=== PATIENT | male | born 1990 | race Caucasian/White ===

== ENCOUNTER → 2018-05-18 | Outpatient (CLI) | payer BC ==
--- NOTE | 2018-05-18 16:01 | RADIOLOGY IMAGING REPORT ---
FAC[place] [facility] [place]IENT NAME: Angel Joe : 1990 MR: [id number] V: [id number] EXAM DATE: ORDERING PHYSICIAN: LYDIA AMEZCUA TECHNOLOGIST: Location: [facility] - [place] Patient: Angel Joe : 1990 Visit/Account:[id number] Date of Sevice: 05/18/2018 Examination: ULTRASOUND OF THE SCROTUM AND TESTES Comparison: None available. History: Left testicle swelling and pain. Findings: Standard ultrasound of the testicles and scrotum with color flow and spectral analysis. Right testicle: 4.0 x 1.6 x 2.7 cm. 3 mm region of dystrophic calcification in the right mid testicle . There are a few additional microlithiasis scattered throughout the parenchyma. Normal waveforms on Doppler interrogation. Right epididymis: Within normal limits. Left testicle: 4.9 x 2.7 x 3.1 cm. The testicle contains 2 dominant heterogeneous solid and cystic ma sses which on Doppler interrogation demonstrate regions of increased vascularity. A more medial mass measures 3.4 x 1.9 x 1.8 cm and a more lateral mass measures 2.3 x 2.1 x 1.9 cm. There are normal art erial and venous waveforms within the normal testicular parenchyma. Left epididymis: Within normal limits. Hydrocele: Trace simple appearing extratesticular fluid on the right. Varicocele: None Scrotum: Negative. IMPRESSION: 1. The left testicle contains two complex solid and cystic vascular masses; the appearance is most co ncerning for malignancy with abscess considered less likely. Urology consultation is required. 2. 3 mm focus of dystrophic calcification in the right testicle with scattered microlithiasis. Althou gh this has a benign appearance, given the findings in the contralateral testicle, follow-up is requi red. 3. No evidence of torsion. Results were discussed with LYDIA AMEZCUA at 05/18/2018 3:56 PM. Report Dictated By: Gigi Lewis MD at 05/18/2018 3:47 PM Report E-Signed By: Gigi Lewis MD at 05/18/2018 3:56 PM WSN:[id number]
== END ==
LOC: US 14:46
PROVIDERS: ATTEND Family Medicine
DX: N50.89 Other specified disorders of the male genital organs (principal)
CPT/HCPCS: 76870

== ENCOUNTER → 2018-05-19 | Outpatient (CLI) | payer BC ==
[~2018-05-19] MED LIST: DOCU-416 PO; HYDR-4309 PO; IBUP600T22 PO; IOPAMIDOL 76% 100 ML INFUS BTL 100 ML ONE
--- NOTE | 2018-05-19 15:27 | RADIOLOGY IMAGING REPORT ---
FACILITY: [facility] PATIENT NAME: Angel Joe : 1990 MR: [id number] V: [id number] EXAM DATE: ORDERING PHYSICIAN: BENJAMIN MIDDLETON TECHNOLOGIST: Location: [facility] - [place] Patient: Angel Joe : 1990 Visit/Account:[id number] Date of Sevice: 05/19/2018 CT chest with IV contrast CT abdomen with IV contrast CT pelvis with IV contrast History: Left testicular masses suspicious for malignancy. COMPARISON STUDIES: Scrotal ultrasound 05/18/2018. TECHNIQUE: Axial CT images were obtained through the chest, abdomen and pelvis following the admini stration of nonionic iodinated IV contrast. Reformatted coronal and sagittal images were also obtaine d. Contrast used: Isovue 370, 85 ml One of the following dose optimization techniques was utilized in the performance of this exam: Autom ated exposure control; adjustment of the mA and/or kV according to the patient's size; or use of an i terative reconstruction technique. Specific details can be referenced in the facility's radiology C T exam operational policy. FINDINGS: CT Chest- Lower neck: Negative Lungs and pleura: Negative Mediastinum and sherri: Small volume anterior mediastinum triangular soft tissue likely represents res idual thymus. Heart, aorta, and great vessels: Negative Bones: Negative Chest wall: Negative Chest lymph node assessment: There are no enlarged lymph nodes within the chest. CT Abdomen and Pelvis- Liver: Normal. Spleen: size is normal. Gallbladder and bile ducts: Gallbladder is present. Bile ducts are normal caliber. Pancreas: negative Adrenal glands: negative Kidneys: negative Pelvic structures: Left testicle is larger, more heterogeneous and cystic compared to the right te sticle. Bowel and mesenteries: negative Ascites: None Vessels: negative Musculoskeletal: Negative Body wall: negative Abd/Pelvis lymph node assessment: No enlarged abdominal or pelvic lymph nodes. IMPRESSION: 1. Negative study for metastatic disease in the chest, abdomen, or pelvis. 2. Left testicular mass is highly suspicious for malignancy.. Report Dictated By: Chitra Buck MD at 05/19/2018 3:13 PM Report E-Signed By: Chitra Buck MD at 05/19/2018 3:22 PM WSN:[email or web address]
== END ==
LOC: CT 12:41
PROVIDERS: ATTEND Urology
DX: N50.89 Other specified disorders of the male genital organs (principal)
CPT/HCPCS: 36415; 71260; 74177; 81001; 82105; 83615; 84702; 87088; Q9967

== ENCOUNTER 2018-05-22 00:15 | Day surgery (SDC) | payer BC ==
--- NOTE | 2018-05-19 18:54 | HISTORY AND PHYSICAL ---
DATE OF ADMISSION: May 22, 2018 CHIEF COMPLAINT Left testicular mass. HISTORY OF PRESENT ILLNESS Patient is a 27-year-old white male who is referred to the Urology Clinic by Dr. Huerta for left testicular mass. The patient states he noted a mass approximately two weeks ago. It has been slowly progressing in size and has become mildly tender after standing. He denies any history of trauma, dysuria, gross hematuria, flank pain, or abdominal pain. He has no shortness of breath or change in bowel habits. He was seen in the Urology Clinic. His urinalysis was normal. He had had a CBC and electrolytes performed at Dr. Huerta's which were normal as well. A testicular ultrasound performed revealed a 3 mm area of dystrophic calcification on the peripheral left mid testis with a few small microlithiases on that side. His left side was almost completely replaced with a heterogeneous complex cystic and solid hypervascular mass in two lester, one measuring 3.4 cm and one measuring 2.3 cm. His testis volume was approximately 20 mL on the left and 10 mL on the right on his ultrasound exam. Physical exam in the office revealed Nicola 5 male. He had no gynecomastia and a solid, firm to hard mass on the left testicle which was not fixed. He has had a preoperative CT scan of the chest, abdomen, and pelvis which was normal for metastatic disease. Laboratory data with beta hCG came back as normal at less than 2. He had an LDH which was normal at 363. His alpha-fetoprotein is also high normal at 8. The above findings were discussed with the patient, and he was informed as to the high likelihood this would be a germ cell tumor, either non-seminomatous or seminomatous mixed cell. He is now being brought to the operating room for planned left radical orchiectomy. Preoperative discussion included need for followup on the right given this small area of dystrophic calcification. He was given approximately a 0.5% to 2% risk of having bilateral disease. Risk of hypogonadism was also explained give the relatively decreased size of the right vs. left testis. Semen analysis and sperm banking were also discussed, as well as testicular prosthesis, which he declined at the moment, but would consider at a later date. PAST MEDICAL HISTORY Asthma. PAST SURGICAL HISTORY * [place] teeth removal. * Sty removal. MEDICATIONS Albuterol. ALLERGIES No known drug allergies. SOCIAL HISTORY Patient lives in [place], [place]. He denies tobacco use, but does use alcohol. FAMILY HISTORY Significant for breast cancer in his mother. REVIEW OF SYSTEMS Patient denies chest pain, productive cough, fever, chills, nausea, vomiting, bleeding disorder, liver disease, history of undescended testis, or chronic headaches. PHYSICAL EXAMINATION GENERAL: Patient is a well-developed, well-nourished, white male in no acute distress. HEENT: Normocephalic, atraumatic. CHEST: Clear to auscultation bilaterally. CARDIOVASCULAR: Regular rate and rhythm. ABDOMINAL: Soft, nontender. No masses are palpated. BREASTS: He has no breast tenderness or gynecomastia on exam. GENITOURINARY: Nicola 5 male with circumcised penis. His left testis is normal at approximately 10 to 15 mL in volume. The right is approximately 20 to 25 mL in volume which is firm and very mildly tender to palpation. It is not fixed to the scrotal skin. The cord above the left testis appears normal. He has no inguinal hernias or adenopathy. EXTREMITIES: Without clubbing, cyanosis, or edema. NEUROLOGIC: Nonfocal. IMPRESSION A 27-year-old white male with heterogeneous hypervascular cystic and solid mass in the left testis consistent with testicular cancer. His metastatic evaluation and tumor markers have been negative with his alpha-fetoprotein pending. On his right side, he has a small, 3 mm area of dystrophic calcification. PLAN We will perform a left radical orchiectomy. We will also plan to perform a followup exam and ultrasound of the right side in two to three months' time. ROCK
[~2018-05-22] VITALS: Ht 180.3 cm; Wt 62.6 kg
[2018-05-22] MEDS ORDERED: MIDAZOLAM 2 MG/2 ML VIAL IVP PRN (10:00)
[2018-05-22] MEDS ORDERED: ceFAZolin(*) 1 GM VIAL 1 GM, GENTAMICIN(*) 80 MG/2 ML VIAL 60 MG in NS 0.9% IRRIGATION ... IR ONE ×2 (10:00→13:00)
[2018-05-22] MEDS ORDERED: FAMOTIDINE 20 MG TAB PO ONE (10:00)
[2018-05-22] MEDS ORDERED: ceFAZolin(*) 1 GM VIAL 1 GM in NS(*) 0.9% 100 ML ADDVANT BAG 100 ML IVPB ONE (10:00)
[2018-05-22] MEDS ORDERED: NORMOSOL R SOLN(*) 1000 ML BAG 1,000 ML IV PRN (10:00)
[2018-05-22] MEDS ORDERED: LIDOCAINE/SOD BICARB 8.4% SYR ID ONE (10:00)
[2018-05-22 10:20] VITALS: BP 129/83
[2018-05-22] MEDS ORDERED: ROPIVACAINE 0.2% 20 ML VIAL ONE ×2 (10:59)
[2018-05-22] MEDS ORDERED: fentaNYL CITR 100 MCG/2 ML AMP ONE ×3 (11:50→14:51)
[2018-05-22] MEDS ORDERED: DEXAMETHASONE SOD 4 MG/ML VIAL ONE (11:50)
[2018-05-22] MEDS ORDERED: PROPOFOL EMUL(*) 10MG/ML 20 ML 20 ML ONE (11:50)
[2018-05-22] MEDS ORDERED: LIDOCAINE MPF 1% 5 ML VIAL ONE (11:50)
[2018-05-22] MEDS ORDERED: ONDANSETRON 4 MG/2 ML VIAL ONE (11:50)
[2018-05-22] MEDS ORDERED: KETAMINE HCL 200 MG/20 ML MDV ONE (11:52)
[2018-05-22] MEDS ORDERED: KETOROLAC 30 MG/ML VIAL ONE (14:12)
[2018-05-22] MEDS ORDERED: HYDR-4309 PO (14:42)
[2018-05-22] MEDS ORDERED: DOCU-416 PO (14:43)
[2018-05-22] MEDS ORDERED: IBUP600T22 PO (14:44)
[2018-05-22] MEDS ORDERED: APAP/HYDROCODONE 325/5 TAB ONE (15:29)
[2018-05-22 15:30] VITALS: BP 122/82
[2018-05-22 15:45] VITALS: BP 126/79
[2018-05-22 16:00] VITALS: BP 143/82
--- NOTE | 2018-05-23 10:12 | OPERATIVE REPORT 1 ---
EVENT DATE: May 22, 2018 SURGEON: Maximiliano Estevez MD ANESTHESIOLOGIST: Tang Luis MD ANESTHESIA: General. PREOPERATIVE DIAGNOSIS Left testicular tumor. POSTOPERATIVE DIAGNOSIS Left testicular tumor. PROCEDURE PERFORMED Left radical orchiectomy. ESTIMATED BLOOD LOSS 5 cc. IV FLUIDS Crystalloids. DRAINS None. COMPLICATIONS None. PATHOLOGY Left testis and cord sent for permanent analysis. COMPLICATIONS None. CONDITION The patient was taken to the recovery room awake and in stable condition. STATEMENT OF MEDICAL NECESSITY The patient is a 28-year-old white male with an approximately two week history of left testicular swelling and mild discomfort. Sonogram revealed a testicular mass which was heterogeneous in appearance and hypervascular. The patient had a CT abdomen, chest and pelvis, which was negative for metastatic disease. His tumor markers with alpha-fetoprotein and beta hCG were normal with a beta hCG of less than 2 and alpha-fetoprotein of 8. His LDH was also normal at 363. The patient is now being brought to the operating room for planned left radical orchiectomy. The above findings were discussed with the patient and his parents. The specific risks and benefits of the procedure were explained with possible need for further treatment pending pathology. He has also bee informed as to fertility and hypogonadal risks associated with orchiectomy. DESCRIPTION OF PROCEDURE The patient was brought to the operating room. After general anesthetic was obtained, he was placed supine on the operating room table. A 4 cm curvilinear incision was made two fingerbreadths above the pubic tubercle and taken down through the lines of the Janay in a superior lateral direction. It was taken down to the subcutaneous tissue with electrocautery until the aponeurosis of the external oblique was encountered. It was incised parallel with its fibers to expose the inguinal contents on the left side. The ilioinguinal nerve was identified and retracted superomedially. The cord was isolated at the pubic tubercle and the testis was delivered up through the incision and the gubernacular attachments were removed. Cremasteric fibers were dissected down to the internal ring. No direct or indirect inguinal hernia could be identified. At this point, the vas was isolated at the internal ring. It was doubly cross- clamped and incised. The ends were free tied with 3-0 silk. Following this, the cord just inside the internal ring was doubly cross-clamped with a right angle clamp and a distal clamp placed beyond this. It was incised with the Metzenbaum scissors. The specimen was removed and placed on the back table. A 0 silk suture tie was placed on the more distal right angle followed by a free tie on the more proximal. This was followed by an 0 PDS stitch or free tie which was left with ends approximately 1.5 cm for possible further identification during node dissection. After release, the cord stump retracted nicely into the internal ring. The wound was irrigated with double antibiotic solution. The ilioinguinal nerve was placed back in its normal anatomical position and the aponeurosis was closed with 2-0 Vicryl in a running manner. Following this, 0.25% ropivacaine was given along the floor and skin edge. The subcutaneous tissues were reapproximated with interrupted 3-0 chromic and the skin was closed with running subcuticular 4-0 Vicryl. Skin adhesive was placed along the skin edge. A sterile fluff dressing was applied at the conclusion of the case. The patient was awakened in the operating room and taken to recovery area in stable condition. PLAN Patient will be discharged home today on [place], Colace and Motrin. We will plan to see him in the Urology Clinic in approximately one week's time to review his pathology and discuss further treatment. ROCK
== END 2018-05-22 15:30 | disposition home or self-care (01) ==
LOC: OR 00:15
PROVIDERS: ATTEND Urology
DX: D49.59 Neoplasm of unspecified behavior of other genitourinary organ (principal); N50.9 Disorder of male genital organs, unspecified
CPT/HCPCS: 54530; 88307; J0690; J1100; J1885; J2001; J2250; J2405; J2704; J2795; J3010; J3490; J7050

== ENCOUNTER → 2018-07-17 | Outpatient (CLI) | payer BC ==
[~2018-07-17] MED LIST changes: -HYDR-4309 PO; +HYDR-653 PO; -IOPAMIDOL 76% 100 ML INFUS BTL 100 ML ONE
--- NOTE | 2018-07-17 17:04 | RADIOLOGY IMAGING REPORT ---
FACILITY: [facility] - [place] PATIENT NAME: Angel Joe : 1990 MR: [id number] V: [id number] EXAM DATE: ORDERING PHYSICIAN: BENJAMIN MIDDLETON TECHNOLOGIST: Location: [facility] - [place] Patient: Angel Joe : 1990 Visit/Account:[id number] Date of Sevice: 07/17/2018 TESTICULAR HISTORY: Cancer and left testicle, left orchiectomy COMPARISON: May 18, 2018 FINDINGS: Testes: There is been a left orchiectomy The right testicle measures 4.2 x 1.8 x 2.8 cm normal blood flow is identified within the right testi kevin there are scattered calcifications within the right testicle similar to the prior study the large st calcification measures 3.8 x 3.5 x 3.6 cm not significantly changed when measured in the same tiss ue planes Symmetric and unremarkable blood flow documented by color and Duplex Doppler ultrasound. Epididymides: Unremarkable Blood flow is unremarkable in the right epididymis by color Doppler ultra sound. Hydrocele: Trace on the right Varicocele: Possible small varicocele on the right IMPRESSION: Postsurgical changes from left orchiectomy Calcifications within the right testicle are again noted and appear relatively stable however continu ed follow-up recommended given the medical history of left testicular cancer Trace hydrocele on the right Possible small varicocele on the right Report Dictated By: Rhianna Ledbetter MD at 07/17/2018 4:15 PM Report E-Signed By: Rhianna Ledbetter MD at 07/17/2018 5:00 PM WSN:[email or web address]
== END ==
LOC: US 03:28
PROVIDERS: ATTEND Urology
DX: C62.12 Malignant neoplasm of descended left testis (principal); N50.89 Other specified disorders of the male genital organs; Z90.79 Acquired absence of other genital organ(s); N43.3 Hydrocele, unspecified; I86.1 Scrotal varices
CPT/HCPCS: 76870

== ENCOUNTER → 2018-07-21 | Outpatient (CLI) | payer BC | LOC: LAB 06:53 | PROVIDERS: ATTEND Urology | DX: C62.12 Malignant neoplasm of descended left testis (principal) | CPT/HCPCS: 36415; 84403 ==

== ENCOUNTER 2018-09-20 08:00 | Outpatient (RCR) | payer BC ==
[2018-06-23 11:25] VITALS: BP 121/76
--- NOTE | 2018-06-24 19:09 | [facility] ONCOLOGY NOTE ---
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 ONCOLOGY HISTORY The patient is a 28-year-old male who presented with left testicular mass, so the patient had testicular ultrasound done on the May which showed left testicle with two complex solid and cystic vascular masses with dystrophic calcification on the right testicle with scattered microlithiasis. CT abdomen, chest, and pelvis done on the May came back negative for systemic metastasis. 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 The teratoma is organ confined, negative lymphovascular invasion, and negative margins, so the tumor was staged at stage I (pT1 NX cM0). Tumor markers with LDH, alpha-fetoprotein, and beta hCG all came within the normal range and were done on the May prior to surgery. PAST MEDICAL HISTORY Asthma. PAST SURGICAL HISTORY 1. Left orchiectomy on the May. 2. [place] tooth extraction. FAMILY HISTORY Mother had breast cancer. Maternal grandfather and maternal grandmother both had lung cancer. Maternal grandfather had leukemia. SOCIAL HISTORY Patient is single with no children. He works in mining. He drinks occasionally, but denies any smoking tobacco or illicit drugs. He chewed tobacco. CURRENT MEDICATIONS Albuterol p.r.n. for asthma. ALLERGIES No known drug allergies. REVIEW OF SYSTEMS CONSTITUTIONAL: No appetite or weight change. No fever, chills, or sweating. No recent infection. HEENT: Ears: No tinnitus or hearing problem. Nose: No nasal discharge or epistaxis. Throat: No sore throat or mouth ulcers. Eyes: No diplopia or visual changes. RESPIRATORY: No shortness of breath. No cough, expectoration, or hemoptysis. CARDIOVASCULAR: No chest pain, orthopnea, or paroxysmal nocturnal dyspnea (PND). No edema. No palpitations. GASTROINTESTINAL: No nausea or vomiting. No diarrhea or constipation. No change in bowel movements. No heartburn or swallowing difficulties. No abdominal pain. No jaundice. No hematemesis, melena, or rectal bleeding. GENITOURINARY: No hematuria or dysuria. MUSCULOSKELETAL: No pain in the muscles, joints, or bones. NEUROLOGICAL: No tingling or numbness in the hands or feet. No headaches or convulsions. HEMATOLOGIC/LYMPHATIC: No bleeding or easy bruising. No weakness or fatigued. No enlarged lymph nodes. SKIN: No skin rash or lumps. PSYCHIATRIC: No anxiety or depression. PHYSICAL EXAMINATION GENERAL: Looks stable. Well developed, well nourished, and in no acute distress. VITAL SIGNS: Blood pressure 121/76, pulse 86 per minute, respirations 16 per minute, temperature 98.4, pulse ox 96% on room air. HEENT: Head: Atraumatic. No sinus tenderness to palpation. Eyes: No icterus or conjunctivitis. Mouth and throat: No oral thrush or mucositis. NECK: Supple. No cervical or supraclavicular lymphadenopathy. LUNGS: Clear to auscultation and percussion bilaterally. HEART: Regular rate and rhythm. No gallops, murmurs, clicks, or rubs. ABDOMEN: Soft and lax. No tenderness. No hepatosplenomegaly. No masses. EXTREMITIES: No cyanosis, clubbing, or edema. LYMPHATICS: No peripheral lymphadenopathy. NEUROLOGICAL: Conscious, alert, and oriented times three. No focal motor or sensory deficits. PSYCHIATRIC: Mood and affect appear normal. SKIN: No skin rash, bruise, or purpuric eruption. 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 CT chest, abdomen, and pelvis done on the May came back negative for systemic metastasis. Tumor is confined to the testicle with negative margins and no lymphovascular invasion, so it is stage I. Tumor markers were normal. Given this information and the review of the literature, they recommend surveillance for stage I pure teratoma, but the case will be presented in Tumor Board at [facility], and I await their recommendation. I am planning to see him after we get the recommendation from the [facility], but generally speaking, it seems to me surveillance will be the plan of management. Some recommend retroperitoneal lymph node dissection, but his CT scan did not show any abnormality there. There was one report of around 10 cases of stage I pure testicular teratoma, and only two out of the 10 had a relapse in the future. PLAN 1. Await the recommendation by [facility]. 2. We will proceed with surveillance if this is the plan of management and will see him in three months from now with CBC, chem panel, alpha-fetoprotein, LDH, beta hCG, and CT of chest, abdomen, and pelvis. 3. Patient to contact us for any new concerns or complaints. ROCK
[~2018-09-20] VITALS: Ht 180.1 cm; Wt 68.4 kg
[2018-09-20 08:17] VITALS: BP 118/85
--- NOTE | 2018-09-20 10:10 | RADIOLOGY IMAGING REPORT ---
FACILITY: [facility] PATIENT NAME: Angel Joe : 1990 MR: [id number] V: [id number] EXAM DATE: ORDERING PHYSICIAN: EL COLÓN TECHNOLOGIST: Location: Patient: Angel Joe : 1990 Visit/Account:[id number] Date of Sevice: 09/20/2018 CT CHEST ABDOMEN PELVIS W & W/O HISTORY: Left testicular cancer. TECHNIQUE: CT thoracic inlet to the pubic symphysis was obtained with IV contrast. One of the following dose optimization techniques was utilized in the performance of this exam: autom ated exposure control; adjustment of the mA and/or kV according to the patient's size; or use of an i terative reconstruction technique. Specific details can be referenced in the facility's radiology CT exam operational policy. CONTRAST: 75 cc Isovue-370 IV. COMPARISON: CT chest abdomen and pelvis 05/19/2018 FINDINGS: CHEST: Lungs/pleura: The lungs are clear. Mediastinum: Negative. Bones/soft tissues: Negative. ABDOMEN/PELVIS: Liver/gallbladder: The liver demonstrates homogeneous enhancement without evidence of mass. The gal lbladder is normal. Spleen: Normal. Adrenals: Normal. Pancreas: Normal enhancement without evidence of mass. Kidneys/: Both kidneys demonstrate normal enhancement without evidence of hydronephrosis or mass. The urinary bladder is normal. Pelvis/Bladder: Urinary bladder is normal. GI: There is no focal abnormality in the small bowel or colon. Vessels/nodes: There is no right or left iliac chain adenopathy. There is no intraperitoneal or retr operitoneal adenopathy. Bones/soft tissues: There are no lytic or blastic bone lesions. IMPRESSION: Normal CT chest abdomen and pelvis. Specifically, no evidence of metastatic testicular cancer. Report Dictated By: Jarred Cox at 09/20/2018 10:02 AM Report E-Signed By: Jarred Cox at 09/20/2018 10:06 AM WSN:[id number]
== END 2018-09-21 ==
LOC: SPU 08:00
PROVIDERS: ATTEND Internal Medicine Hematology
DX: C62.02 Malignant neoplasm of undescended left testis (principal)
CPT/HCPCS: 36415; 71270; 74178; 82105; 83615; 84702; 99202; Q9967

== ENCOUNTER → 2018-10-09 | Outpatient (CLI) | payer BC ==
--- NOTE | 2018-10-09 15:45 | RADIOLOGY IMAGING REPORT ---
FACILITY: [facility] - [place] PATIENT NAME: Angel Joe : 1990 MR: [id number] V: [id number] EXAM DATE: ORDERING PHYSICIAN: BENJAMIN MIDDLETON TECHNOLOGIST: Location: [facility] [place] Patient: Angel Joe : 1990 Visit/Account:[id number] Date of Sevice: 10/09/2018 TESTICULAR HISTORY: Left testicular cancer COMPARISON: Testicular ultrasound July 17, 2018 FINDINGS: Testes: The left testicle surgically absent. The right testicle measures 4.2 x 1.7 x 2.8 cm. Scattered calcifications within the right testicle a ppears similar to the prior study the largest measures 3.8 x 3.2 x 3 cm. Blood flow documented by co paige and Duplex Doppler ultrasound. Epididymides: The head the epididymis on the right measures 1.2 cm Blood flow is unremarkable in eac h epididymis by color Doppler ultrasound. Hydrocele: There is a small right hydrocele present Varicocele: None. IMPRESSION: Post surgical changes from a left orchiectomy There are scattered calcified occasions the right testicle that appears similar to the prior study al though close follow-up recommended given the history of left testicular cancer Small right hydrocele Report Dictated By: Rhianna Ledbetter MD at 10/09/2018 3:36 PM Report E-Signed By: Rhianna Ledbetter MD at 10/09/2018 3:41 PM WSN:[email or web address]
== END ==
LOC: US 00:30
PROVIDERS: ATTEND Urology
DX: Z90.79 Acquired absence of other genital organ(s) (principal); N50.9 Disorder of male genital organs, unspecified; N43.2 Other hydrocele
CPT/HCPCS: 76870

== ENCOUNTER 2018-12-22 11:20 | Outpatient (RCR) | payer BC ==
[2018-09-29 09:51] VITALS: BP 113/77
--- NOTE | 2018-09-29 22:35 | ONCOLOGY FOLLOW UP NOTE ---
EVENT DATE: September 29, 2018 CHIEF COMPLAINT Followup for left testicular pure teratoma. HISTORY OF PRESENT ILLNESS Patient is a 28-year-old male was seen today in three-month followup. He is doing well. He denies any shortness of breath. He has had no urinary or bowel problems. He is working on stopping chewing tobacco, but has not been successful as of yet. He denies any specific complaints. ONCOLOGY HISTORY Patient is a 28-year-old male who presented with a left testicular mass. Ultrasound done on 05/18/18 showed two complex, solid masses in the left testicle and cystic vascular masses with dystrophic calcification in the right testicle with scattered microlithiases. CT of the chest, abdomen, and pelvis was negative for metastatic disease. Baseline LDH, alpha-fetoprotein, and beta- hCG were all within normal limits prior to surgery. Underwent left orchiectomy on 05/22/18. 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 The teratoma was confined to the organ with negative lymphovascular invasion and negative margins. Stage I (pT1 NX cM0). PAST MEDICAL HISTORY Asthma. PAST SURGICAL HISTORY 1. Left orchiectomy, 05/22/18. 2. [place] tooth extraction. FAMILY HISTORY Mother had breast cancer. Maternal grandfather and maternal grandmother both had lung cancer. Maternal grandfather had leukemia. SOCIAL HISTORY Patient is single. He has no children. He works in [employer]. He drinks socially. He does not smoke cigarettes, but does chew tobacco. He does not use illicit drugs. CURRENT MEDICATIONS Albuterol p.r.n. ALLERGIES No known drug allergies. REVIEW OF SYSTEMS A 12-point review of systems is performed and is negative except as stated above. PHYSICAL EXAMINATION VITAL SIGNS: Blood pressure 113/77, pulse 73, respirations 16, temp 98, O2 sat 96%. GENERAL: Patient is a well-developed, well-nourished male in no acute distress. HEAD: Normocephalic, atraumatic. EYES: Sclerae anicteric. MOUTH: Moist mucous membranes. No lesion. NECK: Supple. No palpable adenopathy. LUNGS: Clear bilaterally. CARDIOVASCULAR: Heart rate regular, 73 per minute, without murmur, S3, or S4. ABDOMEN: Soft, nontender, with active bowel sounds. No organomegaly. EXTREMITIES: No edema. NEUROLOGIC: Nonfocal. LABORATORY On 09/20/18, LDH 333. Alpha-fetoprotein 2. Beta-hCG less than 2. IMPRESSION The patient is a 28-year-old male with stage I (pT1 NX cM0) pure left testicular teratoma, status post left orchiectomy on 05/22/18. CT of the chest, abdomen, and pelvis was negative for systemic metastases. Baseline tumor markers were also within normal limits. PLAN 1. Left testicular cancer. No signs or symptoms of disease recurrence. He underwent CT of the chest, abdomen, and pelvis on 09/20/18, which was negative for evidence of metastatic disease. The previously noted prominent right hilar node was not evident on this scan. 2. Tumor Board. [facility]. The prominent right hilar node was noted, and recommendation was to monitor this. They felt it was safe to postpone the need for RPLND as imaging showed no evidence of metastatic disease. 3. Testicular ultrasound. Right testicle is atrophic and does have evidence of microlithiases. The right testicle was described as relatively stable, but continued followup was recommended. Ultrasound will be repeated per Dr. Estevez on 10/12/18. 4. Follow up in two months for continued care. He will be due for a chest x- ray at that time. CBC, CMP, LDH, alpha-fetoprotein, and beta-hCG will be drawn before that visit. [facility]
--- NOTE | 2018-12-14 11:00 | RADIOLOGY IMAGING REPORT ---
FACILITY: [facility] - [place] PATIENT NAME: Angel Joe : 1990 MR: [id number] V: [id number] EXAM DATE: ORDERING PHYSICIAN: EL COLÓN TECHNOLOGIST: Location: [facility] - [place] Patient: Angel Joe : 1990 Visit/Account:[id number] Date of Sevice: 12/14/2018 Chest 2 views: HISTORY: No current chest complaints. History of cancer. Testicular cancer per the history. FINDINGS: Frontal and lateral chest: Cardiomediastinal silhouette is within normal limits. There is no infiltrate or pleural effusion. No pneumothorax. Pulmonary vasculature is normal. There are no pulmonary nodules identified radiographically. Visualized osseous structures are within normal limits. IMPRESSION: No evidence of acute cardiopulmonary abnormality. There are no radiographic findings to suggest metastases. Report Dictated By: Mary Chua MD at 12/14/2018 10:53 AM Report E-Signed By: Mary Chua MD at 12/14/2018 10:55 AM WSN:[email or web address]
[2018-12-14 14:27] VITALS: BP 127/86
[2018-12-22 11:28] VITALS: BP 121/74
--- NOTE | 2018-12-22 23:09 | ONCOLOGY FOLLOW UP NOTE ---
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 CHIEF COMPLAINT Patient is here today for followup of his left testicular pure teratoma. ONCOLOGY HISTORY The patient is a 28-year-old male who presented with left testicular mass, so the patient had testicular ultrasound done on the May, which showed left testicle with two complex solid and cystic vascular masses with dystrophic calcification on the right testicle with scattered microlithiasis. CT abdomen, chest, and pelvis done on the May came back negative for systemic metastasis. 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 The teratoma is organ confined, negative lymphovascular invasion, and negative margins, so the tumor was staged at stage I (pT1 NX cM0). Tumor markers with LDH, alpha-fetoprotein, and beta hCG all came within the normal range and were done on the May prior to surgery. HISTORY OF PRESENT ILLNESS Patient is here today for followup of his left testicular pure teratoma. He is doing fine currently apart from having fatigue from work. Patient does not have any other problem. He had an ultrasound done on October 09, 2018, which showed postsurgical changes in the left testicle which is absent with a small right hydrocele. PAST MEDICAL HISTORY Asthma. PAST SURGICAL HISTORY 1. Left orchiectomy on the May. 2. [place] tooth extraction. SOCIAL HISTORY Patient is single with no children. He works in mining. He drinks occasionally, but denies any smoking tobacco or illicit drugs. He chewed tobacco. FAMILY HISTORY Mother had breast cancer. Maternal grandfather and maternal grandmother both had lung cancer. Maternal grandfather had leukemia. CURRENT MEDICATIONS Albuterol p.r.n. for asthma. ALLERGIES No known drug allergies. REVIEW OF SYSTEMS CONSTITUTIONAL: No appetite or weight change. No fever, chills, or sweating. No recent infection. HEENT: Ears: No tinnitus or hearing problem. Nose: No nasal discharge or epistaxis. Throat: No sore throat or mouth ulcers. Eyes: No diplopia or visual changes. RESPIRATORY: No shortness of breath. No cough, expectoration, or hemoptysis. CARDIOVASCULAR: No chest pain, orthopnea, or paroxysmal nocturnal dyspnea (PND). No edema. No palpitations. GASTROINTESTINAL: No nausea or vomiting. No diarrhea or constipation. No change in bowel movements. No heartburn or swallowing difficulties. No abdominal pain. No jaundice. No hematemesis, melena, or rectal bleeding. GENITOURINARY: No hematuria or dysuria. MUSCULOSKELETAL: No pain in the muscles, joints, or bones. NEUROLOGIC: No tingling or numbness in the hands or feet. No headaches or convulsions. HEMATOLOGIC/LYMPHATIC: No bleeding or easy bruising. He has occasional fatigue from work. No enlarged lymph nodes. SKIN: No skin rash or lumps. PSYCHIATRIC: No anxiety or depression. PHYSICAL EXAMINATION GENERAL: Looks stable. Well developed, well nourished, and in no acute distress. VITAL SIGNS: Blood pressure 121/75, pulse 77 per minute, respirations 16 per minute, temperature 98.1, pulse ox 94% on room air. HEENT: Head: Atraumatic. No sinus tenderness to palpation. Eyes: No icterus or conjunctivitis. Mouth and Throat: No oral thrush or mucositis. NECK: Supple. No cervical or supraclavicular lymphadenopathy. LUNGS: Clear to auscultation and percussion bilaterally. HEART: Regular rate and rhythm. No gallops, murmurs, clicks, or rubs. ABDOMEN: Soft and lax. No tenderness. No hepatosplenomegaly. No masses. EXTREMITIES: No cyanosis, clubbing, or edema. LYMPHATICS: No peripheral lymphadenopathy. NEUROLOGIC: Conscious, alert, and oriented times three. No focal motor or sensory deficits. PSYCHIATRIC: Mood and affect appear normal. SKIN: No skin rash, bruise, or purpuric eruption. DIAGNOSTIC DATA Chest x-ray on the December was negative for metastasis. Ultrasound of testicle on the September showed absent left testicle with postsurgical changes with a small right hydrocele. His current beta-hCG has risen, alpha-fetoprotein is 2, and LDH is 388, all within the normal range. 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 CT chest, abdomen, and pelvis done on the May came back negative for systemic metastasis. Tumor is confined to the testicle with negative margins and no lymphovascular invasion, so it is considered stage I. Tumor markers were normal. Given this information and review of the literature, the recommendation is surveillance for stage I pure teratoma, but the case was presented at the Tumor Board at [facility] with the same recommendation of surveillance. Patient is doing very well currently. His current chest x-ray is without any evidence of metastasis. His testicular ultrasound in September 2018 was without any changes except for small right hydrocele and absent left testicle with some postsurgical changes. His tumor markers currently are within the normal range. I am planning to see him again in three months, and at this time, I am planning to check his CBC, chemistry panel, alpha-fetoprotein, LDH, beta-hCG, and CT chest, abdomen, and pelvis with intravenous and oral contrast. PLAN 1. Continue followup. 2. Patient to return in three months with CBC, chem panel, LDH, alpha- fetoprotein, beta-hCG, and CT chest, abdomen, and pelvis with IV and oral contrast. 3. Patient to contact us for any new concerns or complaints. [facility]
== END 2018-12-28 ==
LOC: ONC 11:20
PROVIDERS: ATTEND Internal Medicine Hematology
DX: C62.92 Malignant neoplasm of left testis, unspecified whether descended or undescended (principal); F17.220 Nicotine dependence, chewing tobacco, uncomplicated; Z98.890 Other specified postprocedural states
CPT/HCPCS: 36415; 71046; 82105; 83615; 84702; 99212

== ENCOUNTER → 2019-01-10 | Outpatient (CLI) | payer BC ==
--- NOTE | 2019-01-10 09:56 | RADIOLOGY IMAGING REPORT ---
FACILITY: [facility] PATIENT NAME: Angel Joe : 1990 MR: [id number] V: [id number] EXAM DATE: ORDERING PHYSICIAN: BENJAMIN MIDDLETON TECHNOLOGIST: Location: [facility] Patient: Angel Joe : 1990 Visit/Account:[id number] Date of Sevice: 01/10/2019 TESTICULAR HISTORY: Status post left testicular cancer surgery COMPARISON: October 09, 2018 FINDINGS: Testes: Left testicle surgically absent. The right testicle measures 3.8 x 1.9 x 3 cm small calcific ations scattered throughout the right testicle are again seen. There is a dominant calcification alessandro suring 3.2 x 3 x 3.8 cm that appears similar to the prior study Epididymides: The head epididymis on the right measures 7 x 7 x 11 mm Blood flow is unremarkable in the right epididymis by color Doppler ultrasound. Hydrocele: Small on the right Varicocele: None. IMPRESSION: Postsurgical changes from a left orchiectomy Calcifications in the right testicle appears similar to the prior study Report Dictated By: Rhianna Ledbetter MD at 01/10/2019 9:49 AM Report E-Signed By: Rhianna Ledbetter MD at 01/10/2019 9:53 AM WSN:[email or web address]
== END ==
LOC: US 00:29
PROVIDERS: ATTEND Urology
DX: N50.89 Other specified disorders of the male genital organs (principal); Z90.79 Acquired absence of other genital organ(s)
CPT/HCPCS: 76870

== ENCOUNTER → 2019-03-21 | Outpatient (CLI) | payer BC ==
[~2019-03-21] MED LIST changes: +IOPAMIDOL 76% 100 ML INFUS BTL 100 ML ONE
--- NOTE | 2019-03-21 15:46 | RADIOLOGY IMAGING REPORT ---
FACILITY: [facility] - [place] PATIENT NAME: Angel Joe : 1990 MR: [id number] V: [id number] EXAM DATE: ORDERING PHYSICIAN: EL COLÓN TECHNOLOGIST: Location: [facility] - [place] Patient: Angel Joe : 1990 Visit/Account:[id number] Date of Sevice: 03/21/2019 CT CHEST ABDOMEN PELVIS W/CON HISTORY: Testicular cancer ADDITIONAL HISTORY: None. TECHNIQUE: Following administration of IV contrast axial images acquired through the chest abdomen a nd pelvis during the portal venous phase. Coronal and sagittal reformatting was also performed.Dose Lowering Technique One of the following dose optimization techniques was utilized in the performance of this exam: Autom ated exposure control; adjustment of the mA and/or kV according to the patient's size; or use of an i terative reconstruction technique. Specific details can be referenced in the facility's radiology C T exam operational policy. CONTRAST: 75 mL Isovue-370 and 700 mL of water as an oral contrast COMPARISON: September 20, 2018 FINDINGS: CHEST: Lungs/Pleura: Negative. Mediastinum/lymph nodes: There small calcified AP window lymph nodes Heart/vessels: Negative. Bones/soft tissues: Negative ABDOMEN AND PELVIS: Hepatobiliary: Negative. Spleen: Negative. Pancreas: Negative. Adrenals: Negative. Kidneys ureters and bladder : 4 mm nonobstructing calculus upper pole calyx of the right kidney Genitalia: Postsurgical changes from a left orchiectomy GI: Negative. Vessels/spaces/nodes: Negative. Bones/soft tissues: Negative. Additional findings: None pertinent. IMPRESSION: No evidence of metastatic disease in the chest abdomen or pelvis Incidental note of a 4 mm nonobstructing calculus in the upper pole of the right kidney Postsurgical changes from a left orchiectomy Report Dictated By: Rhianna Ledbetter MD at 03/21/2019 3:29 PM Report E-Signed By: Rhianna Ledbetter MD at 03/21/2019 3:38 PM WSN:[email or web address]
== END ==
LOC: CT 14:27
PROVIDERS: ATTEND Internal Medicine Hematology
DX: C62.90 Malignant neoplasm of unspecified testis, unspecified whether descended or undescended (principal); N20.0 Calculus of kidney; Z90.79 Acquired absence of other genital organ(s)
CPT/HCPCS: 71260; 74177; Q9967